=== PATIENT | female | born 2000 | race Caucasian/White ===

== ENCOUNTER → 2021-08-31 | Outpatient (CLI) | payer OTHER | LOC: CARD 14:30 | PROVIDERS: ATTEND Internal Medicine Cardiovascular Disease | DX: I07.1 Rheumatic tricuspid insufficiency (principal); R42 Dizziness and giddiness; R00.0 Tachycardia, unspecified | CPT/HCPCS: 93225; 93226; 93306 ==

== ENCOUNTER 2021-09-15 09:30 | Outpatient (CLI) | payer OTHER ==
[~2021-09-15] VITALS: Ht 152.4 cm; Wt 55.3 kg
[2021-09-15] VITALS (18 sets, daily range): BP systolic 111–137; BP diastolic 68–102
[~2021-09-15 09:30] MED LIST: CATHETER FLUSH 10 ML SYR IV PRN; NS IV 1000 ML 1,000 ML IV SCH
--- NOTE | 2021-09-15 11:28 | Cardiac Procedure Note ---
Cardiology Procedures Date of Procedure 09/15/2021 TILT TABLE TEST INDICATION: Dizziness and tachycardia. PROCEDURE: After informed consent and in the fasting state, upright tilt table testing was performed. The patient was connected to a monitor car operator and serial heart rates and blood pressures were obtained approximately every 3 minutes. The patient was placed on the tilt table in the supine position and safety straps were placed. The resting heart rate was 97 bpm with a blood pressure of 127/84 mmHg. After approximately 15 minutes in the supine position, the patient was brought to 70 degrees upright. The immediate vital signs at that time were a heart rate of 117 bpm with a blood pressure of 132/95 mmHg. The heart rate hovered in the high 90s to low 100s during the test. The lowest blood pressure during the test was 111/87 mmHg. At 40 minutes, the heart rate was 96 bpm with a blood pressure of 111/87 bpm. The patient was then brought to the supine position. The final supine vital signs were a heart rate of 85 bpm with a blood pressure of 118/85 bpm. The patient did not have syncope or report any dizziness during the test. There is no evidence of vasovagal syncope based upon this test. These findings are also not consistent with inappropriate tachycardia or postural orthostatic tachycardia syndrome. I should note, before the test while she was having her IV catheter placed, she did have tachycardia but at that time was very anxious about the needlestick. IMPRESSION: 1. Upright tilt table test was negative for vasovagal syncope, inappropriate tachycardia or postural orthostatic tachycardia syndrome. Although her heart rate did rise during the upright portion of the test, her heart rate only addy by 20 bpm and came back down close to her baseline while she was still upright. This is a normal physiologic response to being upright. Certain portions of this document may have been dictated utilizing voice recognition technology. Inherent to this technology, typographical and grammatical errors may exist. As much as I am diligent to identify and correct these mistakes, some errors may remain in the document. BILL FREY JR, MD Sep 15, 2021 11:28
== END 2021-09-15 10:32 ==
LOC: CARD 09:30
PROVIDERS: ATTEND Internal Medicine Cardiovascular Disease
DX: R42 Dizziness and giddiness (principal); R00.0 Tachycardia, unspecified
CPT/HCPCS: 93660

== ENCOUNTER → 2021-09-28 | Outpatient (CLI) | payer OTHER | LOC: LAB 14:10 | PROVIDERS: ATTEND Internal Medicine Cardiovascular Disease | DX: R42 Dizziness and giddiness (principal); R00.0 Tachycardia, unspecified | CPT/HCPCS: 36415; 84443 ==

== ENCOUNTER 2021-10-03 08:30 | Outpatient (RCR) | payer OTHER | END 2021-10-06 | disposition home or self-care (01) | LOC: CARD 08:30 | PROVIDERS: ATTEND Internal Medicine Cardiovascular Disease | DX: R42 Dizziness and giddiness (principal) ==

== ENCOUNTER 2022-04-30 17:02 | Emergency (ER) | payer OTHER ==
[~2022-04-30] VITALS: Ht 152 cm; Wt 52.5 kg
[2022-04-30] MEDS ORDERED: hydrOXYzine (VISTARIL/ATARAX) 25 MG capsule/tablet PO ONE (17:15)
--- NOTE | 2022-04-30 17:15 | ED General ---
General Chief Complaint: Psych/Social Disorder Stated Complaint: SOA - CHEST PAIN - FACIAL NUMBNESS Nursing Triage Note: PT STATES SHE HAS NUMBNESS AND TINGLING IN HANDS AND FACE, HX OF ANXIETY BUT STATES SHE WAS NOT DOING ANYTHING BUT WATCHING TV History of Present Illness Date Seen by Provider: Apr 30, 2022 Time Seen by Provider: 17:10 Initial Comments Patient is a 21-year-old female with a recent diagnosis of anxiety who presents to the emergency department with acute onset of shortness of air, facial tingling, and bilateral hand tingling/drawing up. She is accompanied by her spouse who states patient has had similar episodes over the last several days. He states they were just sitting down watching television when the symptoms occurred. They are concerned that patient may be having an allergic reaction as she had a reaction to a Gardasil vaccine in the past. Patient has not been exposed to anything new today per herself and spouse. She is not currently taking any medications for her anxiety but does see a therapist. She denies any nausea/vomiting, difficulty swallowing, wheezing, rash, itching, facial swelling. States her LMP ended 2 days ago. Allergies and Home Medications Allergies Coded Allergies: human papillomavirus vaccine, 9-valent (Verified Allergy, Unknown, 09/15/21) Patient Home Medication List Home Medication List Reviewed: Yes Hydroxyzine HCl (Hydroxyzine HCl) 25 Mg Tablet, 25 MG PO Q8H PRN for ANXIETY Prescribed by: Mira Buchanan on 04/30/22 1829 Review of Systems Review of Systems Constitutional: no symptoms reported EENTM: no symptoms reported Respiratory: no symptoms reported Cardiovascular: no symptoms reported Gastrointestinal: no symptoms reported Genitourinary: no symptoms reported Musculoskeletal: no symptoms reported Skin: no symptoms reported Psychiatric/Neurological: No Symptoms Reported Hematologic/Lymphatic: No Symptoms Reported Immunological/Allergic: no symptoms reported Past Lnzppjc-Vpawrh-Wxhzzk Hx Patient Social History Tobacco Use?: No Use of E-Cig and/or Vaping dev: Yes E-Cig or Vaping type used: Nicotine Substance use?: Yes Substance type: Marijuana Pt feels they are or have been: No Past Medical History Surgery/Hospitalization HX: ANXIETY, SYNDROME OF INAPROPRIATE SINUS TACHYCARDIA Adenoidectomy, Tonsillectomy Currently Using CPAP: No Currently Using BIPAP: No Last Menstrual Period: Apr 27, 2022 Physical Exam Vital Signs Vital Signs - First Documented 04/30/22 17:06 Temp 36.5 Pulse 105 Resp 24 B/P (MAP) 141/90 (107) Pulse Ox 100 O2 Delivery Room Air Capillary Refill : Less Than 3 Seconds Height, Weight, BMI Height: '" Weight: lbs. oz. kg; 22.00 BMI Method: General Appearance: No Apparent Distress, Anxious HEENT: PERRL/EOMI, TMs Normal, Normal ENT Inspection, Pharynx Normal Neck: Full Range of Motion, Normal Inspection, Non Tender, Supple Respiratory: Chest Non Tender, Lungs Clear, Normal Breath Sounds, No Accessory Muscle Use, No Respiratory Distress Cardiovascular: No Edema, No Gallop, No JVD, No Murmur, Normal Peripheral Pulses, Tachycardia Gastrointestinal: Normal Bowel Sounds, No Organomegaly, No Pulsatile Mass, Non Tender, Soft Back: Normal Inspection Extremity: Normal Capillary Refill, Normal Inspection Neurologic/Psychiatric: Alert, Oriented x3, No Motor/Sensory Deficits Skin: Normal Color, Warm/Dry Lymphatic: No Adenopathy Progress/Results/Core Measures Suspected Sepsis SIRS Temperature: Pulse: 105 Respiratory Rate: 24 Blood Pressure 141 /90 Mean: 107 Results/Orders Lab Results Laboratory Tests Test 04/30/22 17:19 Range/Units Urine Test NEGATIVE NEGATIVE Urine Opiates Screen NEGATIVE NEGATIVE Urine Oxycodone Screen NEGATIVE NEGATIVE Urine Methadone Screen NEGATIVE NEGATIVE Urine Propoxyphene Screen NEGATIVE NEGATIVE Urine Barbiturates Screen NEGATIVE NEGATIVE Ur Tricyclic Antidepressants Screen NEGATIVE NEGATIVE Urine Phencyclidine Screen NEGATIVE NEGATIVE Urine Amphetamines Screen NEGATIVE NEGATIVE Urine Methamphetamines Screen NEGATIVE NEGATIVE Urine Benzodiazepines Screen NEGATIVE NEGATIVE Urine Cocaine Screen NEGATIVE NEGATIVE Urine Cannabinoids Screen POSITIVE H NEGATIVE My Orders Orders - MIRA BUCHANAN APRN Ekg Tracing (04/30/22 17:09) Chest 1 View, Ap/Pa Only (04/30/22 17:09) Hcg,Qualitative Urine (04/30/22 17:09) Drug Screen Stat (Urine) (04/30/22 17:09) Hydroxyzine Cap/Tab (Vistaril) (04/30/22 17:15) Vital Signs/I&O 04/30/22 04/30/22 17:06 18:36 Temp 36.5 36.5 Pulse 105 79 Resp 24 20 B/P (MAP) 141/90 (107) 111/60 Pulse Ox 100 100 O2 Delivery Room Air Room Air Capillary Refill : Less Than 3 Seconds Blood Pressure Mean: 107 Progress Note : Progress Note Patient is nontoxic and well-hydrated on exam. Patient is noted to be tachycardic and tachypneic. She does appear to be hyperventilating. There are no adventitious lung sounds or increased work of breathing. No focal neurologic deficits appreciated. No evidence of any acute anaphylactic process as she does not have any facial swelling, rash, wheezing, stridor, drooling. She is able to speak in complete sentences. Initially she was given the option of taking hydroxyzine but she refused the pill as her mother was on the phone and mother was concerned that this could cause her to have an allergic reaction. I explained to patient that there is no evidence she has having any type of allergic reaction at this time and that an anxiety reaction is very likely given that she is having tingling in her face and hands as well as hyperventilating. She was given some time and subsequently was able to relax with resolution of the tachycardia and tachypnea. She states the numbness/tingling in her hands and face resolved. EKG and chest x-ray are acutely reassuring. Urine negative. UDS positive for cannabinoids. I had a lengthy discussion with her regarding treatment options of her anxiety especially given that she is recently been having increased amount and frequency of episodes. She is not able to provide any specific exacerbating factor. She denies any SI/HI/AVH. We will give a prescription for hydroxyzine to use if she wishes. Discussed importance of close follow-up with PCP and therapist for further evaluation/treatment. Return precautions for symptomology discussed. Patient verbalized understanding. ECG EKG : Rate: 88 Rhythm: Normal Sinus Intervals: Normal ECG Impression: Normal Departure Impression Primary Impression: Anxiety Disposition: HOME, SELF-CARE Condition: Improved Departure-Patient Inst. Decision time for Depature: 20:25 Patient Instructions: Anxiety, Adult (DC) Scripts Hydroxyzine HCl (Hydroxyzine HCl) 25 Mg Tablet 25 MG PO Q8H PRN for ANXIETY for 14 Days, #30 TAB 0 Refills Prov: MIRA BUCHANAN APRN 04/30/22 MIRA BUCHANAN APRN Apr 30, 2022 17:14
[2022-04-30 17:34] LABS: HCG,QUALITATIVE URINE NEGATIVE (NEGATIVE)
[2022-04-30 17:43] LABS: AMPHETAMINE SCREEN, URINE NEGATIVE (NEGATIVE); BARBITURATE SCREEN URINE NEGATIVE (NEGATIVE); BENZODIAZEPINES SCREEN URINE NEGATIVE (NEGATIVE); CANNABINOID SCREEN, URINE POSITIVE (NEGATIVE); COCAINE SCREEN URINE NEGATIVE (NEGATIVE); METHADONE STAT NEGATIVE (NEGATIVE); OPIATE SCREEN URINE NEGATIVE (NEGATIVE); OXYCODONE STAT NEGATIVE (NEGATIVE); PROPOXYPHENE STAT NEGATIVE (NEGATIVE); TRICYCLIC ANTIDEPRESSANTS SCRE NEGATIVE (NEGATIVE)
--- NOTE | 2022-04-30 17:49 | Diagnostic Imaging Report ---
INDICATION: Chest pain. COMPARISON: None available. FINDINGS: The lungs appear clear without focal airspace opacities or consolidation. There are no findings of an effusion. There is no evidence of a pneumothorax. Heart size and mediastinal contours appear appropriate. Pulmonary vascularity appears within normal limits. There is no acute or suspicious osseous abnormality demonstrated. IMPRESSION: No radiographic evidence of an acute cardiopulmonary process. Dictated by: Dictated on workstation # [id number]
[2022-04-30] MEDS ORDERED: HYDR-700 PO (18:29)
[2022-04-30 18:36] VITALS: BP 111/60
== END 2022-04-30 18:35 | disposition home or self-care (01) ==
LOC: EDUNIT# 17:02 → ER 17:03
DX: F41.9 Anxiety disorder, unspecified (principal); F17.290 Nicotine dependence, other tobacco product, uncomplicated; Z28.310 Unvaccinated for COVID-19
CPT/HCPCS: 71045; 80306; 84703; 93005